=== PATIENT | female | born 1970 | race African-American/Black ===

== ENCOUNTER 2023-03-16 16:36 | Emergency (ER) | payer SELFPAY ==
[~2023-03-16] VITALS: Ht 165.1 cm; Wt 70.0 kg
[2023-03-16 16:44] VITALS: O2SAT 100
[2023-03-16 17:43] VITALS: BP 142/91; PULSE 78; RESP 16; TEMP 97.5
== END 2023-03-16 18:19 | disposition home or self-care (01) ==
LOC: ER 17:56
DX: F41.0 Panic disorder [episodic paroxysmal anxiety] (principal); Z88.0 Allergy status to penicillin
CPT/HCPCS: 99283